=== PATIENT | male | born 1935 | race Native Hawaiian/Other Pacific Islander ===

== ENCOUNTER 2016-05-30 15:49 | Outpatient (CLI) | payer OTHER ==
[2016-05-30 16:45] LABS: PLATELET COUNT 145 K/uL (142-355)
[2016-05-30 17:04] LABS: POTASSIUM 3.9 mmol/L (3.6-5.2); SODIUM 139 mmol/L (136-145)
== END 2016-05-30 19:22 | disposition home or self-care (01) ==
LOC: LAB 15:49
PROVIDERS: Internal Medicine
DX: Z79.01 Long term (current) use of anticoagulants (principal); Z86.718 Personal history of other venous thrombosis and embolism; Z51.81 Encounter for therapeutic drug level monitoring
CPT/HCPCS: 80053; 83735; 85027; 85610

== ENCOUNTER 2016-07-29 15:46 | Outpatient (CLI) | payer OTHER ==
[2016-07-29 16:32] LABS: PLATELET COUNT 132 K/uL (142-355)
[2016-07-29 17:32] LABS: POTASSIUM 3.9 mmol/L (3.6-5.2); SODIUM 140 mmol/L (136-145)
== END 2016-07-29 19:25 | disposition home or self-care (01) ==
LOC: LAB 15:46
PROVIDERS: Family Medicine
DX: Z79.01 Long term (current) use of anticoagulants (principal); Z86.718 Personal history of other venous thrombosis and embolism; I10 Essential (primary) hypertension; Z51.81 Encounter for therapeutic drug level monitoring
CPT/HCPCS: 80053; 83735; 85027

== ENCOUNTER 2016-10-31 13:57 | Outpatient (CLI) | payer OTHER ==
[2016-10-31 14:22] LABS: PLATELET COUNT 157 K/uL (142-355)
[2016-10-31 15:21] LABS: POTASSIUM 3.8 mmol/L (3.6-5.2); SODIUM 139 mmol/L (136-145)
== END 2016-10-31 20:04 | disposition home or self-care (01) ==
LOC: LAB 13:57
PROVIDERS: Family Medicine
DX: Z79.01 Long term (current) use of anticoagulants (principal); Z86.718 Personal history of other venous thrombosis and embolism; I10 Essential (primary) hypertension; Z51.81 Encounter for therapeutic drug level monitoring
CPT/HCPCS: 80053; 85027

== ENCOUNTER 2017-01-22 15:12 | Outpatient (CLI) | payer OTHER ==
[2017-01-22 14:48] LABS: PLATELET COUNT 136 K/uL (142-355)
[2017-01-22 18:15] LABS: POTASSIUM 4.5 mmol/L (3.6-5.2); SODIUM 139.9 mmol/L (136-145)
== END 2017-01-22 19:04 | disposition home or self-care (01) ==
LOC: LAB 15:12
PROVIDERS: Family Medicine
DX: Z79.01 Long term (current) use of anticoagulants (principal); I10 Essential (primary) hypertension; Z86.718 Personal history of other venous thrombosis and embolism; Z51.81 Encounter for therapeutic drug level monitoring
CPT/HCPCS: 80053; 85027

== ENCOUNTER 2017-04-14 16:10 | Outpatient (CLI) | payer OTHER ==
[2017-04-14 16:49] LABS: PLATELET COUNT 146 K/uL (142-355)
[2017-04-14 17:35] LABS: POTASSIUM 3.4 mmol/L (3.6-5.2)
== END 2017-04-14 17:10 | disposition home or self-care (01) ==
LOC: LAB 16:10
PROVIDERS: Family Medicine
DX: Z79.01 Long term (current) use of anticoagulants (principal); Z86.718 Personal history of other venous thrombosis and embolism; I10 Essential (primary) hypertension
CPT/HCPCS: 80053; 85027

== ENCOUNTER 2017-06-23 15:18 | Outpatient (CLI) | payer OTHER ==
[2017-06-23 15:51] LABS: PLATELET COUNT 169 K/uL (142-355)
[2017-06-23 16:00] LABS: POTASSIUM 4.2 mmol/L (3.6-5.2)
== END 2017-06-23 19:23 | disposition home or self-care (01) ==
LOC: LAB 15:18
PROVIDERS: Family Medicine
DX: I10 Essential (primary) hypertension (principal)
CPT/HCPCS: 80053; 85027

== ENCOUNTER 2017-07-22 16:06 | Outpatient (CLI) | payer OTHER ==
[2017-07-22 16:44] LABS: PLATELET COUNT 161 K/uL (142-355)
[2017-07-22 16:56] LABS: POTASSIUM 3.9 mmol/L (3.6-5.2)
== END 2017-07-22 20:04 | disposition home or self-care (01) ==
LOC: LAB 16:06
PROVIDERS: Family Medicine
DX: Z79.01 Long term (current) use of anticoagulants (principal); Z51.81 Encounter for therapeutic drug level monitoring; Z86.718 Personal history of other venous thrombosis and embolism; I10 Essential (primary) hypertension
CPT/HCPCS: 80053; 85027